=== PATIENT | female | born 1975 | race American Indian/Alaskan Native ===

== ENCOUNTER 2016-09-08 15:14 | Emergency (ER) | payer MEDICAID ==
--- NOTE | 2016-09-08 15:53 | Emergency Department Report ---
Chief Complaint: Dizziness Stated Complaint: DIZZY Time Seen by Provider: 09/08/16 15:49 - HPI History of Present Illness: PT c/o dizziness. PT states she is 12 weeks and having vaginal bleeding. pt also states that she is out of her bp medication - ROS Review of Systems: + vaginal bleeding + cramps - cp - Exam Vital Signs: Vital Signs 09/08/16 15:43 Temperature 97.4 F L Pulse Rate 83 Respiratory 22 Rate Blood Pressure 164/113 O2 Sat by Pulse 100 Oximetry Physical Exam: obese female non toxic, steady gait gcs 15 MSE screening note: Focused history and physical exam performed. Due to findings the following was ordered: labs, us ED Disposition for MSE Condition: Stable
[2016-09-08 16:39] LABS: Alanine Aminotransferase 13 units/L (7-56); Albumin 3.5 g/dL (3.9-5); Alkaline Phosphatase 80 units/L (35-129); Anion Gap 18 mmol/L; Bilirubin,Total 0.2 mg/dL (0.1-1.2); Blood Urea Nitrogen 10 mg/dL (7-17); Calcium 9.3 mg/dL (8.4-10.2); Carbon Dioxide 23 mmol/L (22-30); Glucose 119 mg/dL (65-100); Potassium 3.9 mmol/L (3.6-5.0); Sodium 137 mmol/L (137-145)
[2016-09-08 16:47] LABS: Basophils % (Auto) 0.8 % (0.0-1.8); Eosinophils % (Auto) 1.2 % (0.0-4.3); Hematocrit 37.3 % (30.3-42.9); Hemoglobin 11.8 gm/dl (10.1-14.3); Mean Corpuscular HGB Conc 32 % (30-34); Mean Corpuscular Volume 77 fl (79-97); Platelet Count 220 K/mm3 (140-440); Red Blood Count 4.83 M/mm3 (3.65-5.03); Red Cell Distribution Width 17.9 % (13.2-15.2); White Blood Count 9.1 K/mm3 (4.5-11.0)
[2016-09-08 16:51] LABS: Mean Corpuscular Hemoglobin 24 pg (28-32)
--- NOTE | 2016-09-08 18:08 | Ultrasound Report ---
FINAL REPORT PROCEDURE: US OB \T\lt; = 14 WEEKS FETUS TECHNIQUE: Real-time transabdominal sonography of the uterus, placenta, amniotic fluid, adnexa, and fetus was performed with image documentation. Measurements were obtained to determine age/size. M-mode Doppler was used to document heartbeat. CPT 35493 HISTORY: bleeding COMPARISON: No prior studies are available for comparison. FINDINGS: Uterus 15.4 centimeters. Several small fibroids suspected measuring up to 2.5 x 2.5 centimeter CRL: 53 mm, which corresponds to a gestational age of: 12 weeks, 0 days. pole body limb movements seen Yolk Sac: Normal. Embryonic Cardiac Activity: 167 beats per minute Gestational Sac: Normal. Amniotic fluid: Normal. Cervix: Normal. Right Ovary: 3.9 x 2.5 centimeters normal flow Left Ovary: 4.2 x 3.2 centimeters normal flow Estimated delivery date: 03/23/2017 IMPRESSION: Single live intrauterine gestation at approximately 12 weeks 0 days. EDC by US 03/23/2017
[2016-09-08 21:57] VITALS: BP 162/126
== END 2016-09-08 23:25 | disposition left against medical advice (07) ==
LOC: ED 15:14
DX: O46.91 Antepartum hemorrhage, unspecified, first trimester (principal); O26.891 Other specified pregnancy related conditions, first trimester; R42 Dizziness and giddiness; Z3A.12 12 weeks gestation of pregnancy; Z53.21 Procedure and treatment not carried out due to patient leaving prior to being seen by health care provider
CPT/HCPCS: 36415; 76801; 80053; 84702; 85025; 86900; 86901